=== PATIENT | female | born 1995 | race Asian ===

== ENCOUNTER 2022-02-16 22:36 | Outpatient (CLI) | payer OTHER ==
--- NOTE | 2022-02-17 00:15 | PROVIDER PROGRESS NOTE ---
- HPI Chief Complaint: Vaginal bleeding (Patient is a 33-year-old female 1 at 20 weeks gestation based on a 7-week dating ultrasound who presented on the evening of February 16, 2022 reporting of light vaginal brownish discharge at 6 and 7 PM. She denies of uterine contractions, abdominal trauma, or recent vaginal intercourse.) Current : Vital Signs Temperature 98.4 F 02/16/22 22:42 Heart Rate 107 H 02/16/22 22:42 Respiratory Rate 20 02/16/22 22:42 Blood Pressure 129/76 02/16/22 22:42 Temperature 98.4 F 02/16/22 22:42 Heart Rate 107 H 02/16/22 22:42 Respiratory Rate 20 02/16/22 22:42 Blood Pressure 129/76 02/16/22 22:42 O2 Saturation If not protocol: Oxygen Flow, liters/minute - Exam Perineum and external genitalia appear normal and dry without external blood. Speculum exam reveals a normal cervix that appears closed and thick. There is a small amount of brownish discharge and mucous consistent with old blood. No active bleeding noted. Vaginal culture and GC / chlamydia test completed. - Procedures OB Procedure Performed: NST (Category 1 heart tracing.) Diagnosis/Indication for NST: Other (Vaginal bleeding) - Plan Plan: Patient is a 33-year-old female 1 at 20 weeks gestation based on a 7- week dating ultrasound who presented on the evening of February 16, 2022 reporting of light vaginal brownish discharge at 6 and 7 PM. She denies of uterine contractions, abdominal trauma, or recent vaginal intercourse. She has been moving household items in preparation for a move to a different apartment over the weekend. She reports of active movements. There is no active bright red bleeding noted. She denies of urinary complaints. She believes her blood type is O+. Her lab records from [facility] are not available at this time. She reports a normal thus far. We discussed the differential for potential vaginal bleeding during . She has an upcoming anatomy ultrasound later this week. The position of the placenta and its characteristics will be of importance. She was encouraged to have her provider and operator and truck driver review her placenta location. A speculum exam was completed on today's visit. This reveals a normal perineum and external genitalia without any active vaginal bleeding or staining of the skin. The va ginal epithelium and cervix appear normal. There is a small amount of mucus and brownish discharge consistent with old blood. The cervix is closed and thick in appearance. No visible lesions are noted. Vaginal culture, GC and chlamydia test were obtained. Bleeding precautions have been reviewed with the patient. She was encouraged to abstain from any pelvic activity until the findings of her ultrasound are complete. Patient was encouraged to contact her OB provider during the following business day to make certain that she is Rh+. If not she will require RhoGAM. The risk and benefits of RhoGAM have been reviewed with the patient. heart tones are reassuring with moderate variability and accelerations. [place] monitor shows no evidence of uterine contractions. Patient was dismissed following this exam in good condition. She was invited to return if further vaginal bleeding is noted. Patient was admitted for observation. heart tones are reassuring. [place] monitor shows no active uterine contractions. Speculum exam reveals normal findings with exception of a small amount of brownish vaginal discharge consistent with old blood. Vaginal culture as well as GC chlamydia test were obtained. She was dismissed to home in good condition following the exam. She reports having a O+ blood type but will be more certain when she contacts her OB provider the following morning. She will need RhoGAM if she is Rh-. Patient has an upcoming anatomy ultrasound later this week. She will likely have the placenta location evaluated. PMH/PSH - Past Medical History Cardiovascular: positive: None Respiratory: positive: None Neuro: positive: None Endocrine/Autoimmune: positive: None CLINICAL OB: positive: None Psych: positive: None Musculoskeletal: positive: None Derm: positive: None
[2022-02-17 00:46] VITALS: BP 121/73
[2022-02-18 00:04] LABS: NEISSERIA GONORRHOEAE DNA NEGATIVE (NEGATIVE)
[2022-02-18 00:13] LABS: CHLAMYDIA TRACHOMATIS DNA POSITIVE (NEGATIVE)
[2022-02-18 00:14] LABS: BACTERIAL VAGINOSIS DNA NEGATIVE (NEGATIVE); CANDIDA GLABRATA DNA NEGATIVE (NEGATIVE); CANDIDA GROUP DNA NEGATIVE (NEGATIVE); CANDIDA KRUSEI DNA NEGATIVE (NEGATIVE); TRICHOMONAS VAGINALIS DNA NEGATIVE (NEGATIVE)
== END 2022-02-17 00:16 | disposition home or self-care (01) ==
LOC: WFO 22:36 → FBP 22:42 → WFO 02-17 00:16
PROVIDERS: ATTEND Obstetrics & Gynecology
DX: O46.92 Antepartum hemorrhage, unspecified, second trimester (principal); Z3A.20 20 weeks gestation of pregnancy
CPT/HCPCS: 81514; 87491; 87591; 87661; 99214